=== PATIENT | male | born 1980 | race Two or more races ===

== ENCOUNTER 2023-12-11 18:59 | Emergency (ER) | payer BC ==
[~2023-12-11] VITALS: Ht 170.2 cm; Wt 71.7 kg
[2023-12-11] MEDS ORDERED: MEPERIDINE HCL/PF 25 MG/ML VIAL IV ONE (20:15)
[2023-12-11] MEDS ORDERED: CIPROFLOXACIN HCL 500 MG TABLET PO ONE (20:30)
[2023-12-11] MEDS ORDERED: METRONIDAZOLE/SODIUM CHLORIDE 500 MG/100 ML PIGGYBACK IV ONE (20:30)
[2023-12-11 20:32] LABS: URINE APPEARANCE Clear; URINE BILIRRUBIN Negative (NEGATIVE); URINE BLOOD Negative; URINE COLOR Yellow; URINE GLUCOSE Negative (NEGATIVE); URINE LEUKOCYTE Negative; URINE NITRATE Negative; URINE PROTEIN Negative (NEGATIVE); URINE UROBILINOGEN 0.2 E.U./dl
[2023-12-11 21:03] LABS: HEMATOCRIT 39.5 % (39.0-48.0); HEMOGLOBIN 13.6 g/dL (13-16.00); MEAN CELL VOLUME 77.3 fL (80.0-100.00); MEAN CORPUSCULAR HEMOGLOBIN 26.7 pg (27.00-32.0); MEAN CORPUSCULAR HGB CONC 34.5 g/dl (32.0-36.0); PLATELET COUNT 232 K/uL (150-450); RED CELL DISTRIBUTION WIDTH 14.6 % (11.5-14.5)
[2023-12-11 21:11] LABS: URINE BACTERIA 3.7 uL (0.0-1933); URINE EPITHELIAL CELLS 0.1 uL (0.0-38.8); URINE RBC 0.1 uL (0.0-20.8); URINE WBC 0.1 uL (0.0-23.2)
[2023-12-11 22:21] LABS: ALBUMIN 3.8 gm/dL (3.4-5.0); BILIRUBIN TOTAL 0.43 mg/dL (0.3-1.2); CALCIUM 9.2 mg/dL (8.5-10.1); CREATININE SERUM 1.06 mg/dL (0.70-1.30); GFR 76.61; GLOBULINA 3.3 G/DL (2.4-3.5); POTASSIUM 4.37 mEq/L (3.5-5.1); TOTAL PROTEIN 7.1 gm/dL (6.4-8.2)
[2023-12-12] MEDS ORDERED: LIDOCAINE HCL 1% 200MG/20ML VIAL IJ ONE (00:45)
[2023-12-12] MEDS ORDERED: CLINDAMYCIN PHOSPHATE 600 MG in DEXTROSE 5 % IN WATER 50 ML IV SCH (01:08)
[2023-12-12] MEDS ORDERED: MEPERIDINE HCL/PF 50 MG/ML VIAL IM ONE (01:15)
== END 2023-12-12 14:34 | disposition home or self-care (01) ==
LOC: ER 18:59
PROVIDERS: Emergency Medicine
DX: K61.1 Rectal abscess (principal)
CPT/HCPCS: 36415; 74177; Q9965